=== PATIENT | female | born 1945 | race Caucasian/White ===

== ENCOUNTER → 2016-07-02 | Outpatient (CLI) | payer OTHER ==
[~2016-07-02] VITALS: Ht 157.5 cm; Wt 81.8 kg
[~2016-07-02] MED LIST: IBUPROFEN 200200 M1 PO; MOBIC15 MG PO; TRAZODONE HCL50 MG PO
--- NOTE | ~2016-07-02 | HPC ---
[facility] [place] [address] PAIN MANAGEMENT CONSULTATION Name: SHARMIN REEVES Room #: REG GEOFF Douglas.#: [id number] Admission: 07/02/16 Attend Phys: Dave Negron MD Discharge: Date of : 45 Report #: [id number] THIS REPORT FOR: //name// CC: Dave Miller MD DATE OF SERVICE: 07/02/2016 CHIEF COMPLAINT: Pain in the hip going down into the left side of the leg and into the calf. HISTORY OF PRESENT ILLNESS: The patient is a 70-year-old female who has been referred to the pain clinic for evaluation. The patient has been experiencing pain and discomfort involving her back with pain radiating down into her hip, left leg and down into the avery. She notes that the pain is worse with activity. It improves somewhat with inactivity. She finds that use of her ibuprofen medication can be helpful, but it wears off. She denies any surgery on her back. She does have some pain and discomfort in her left arm. She underwent a flu shot and noticed some myalgias after the injection. She continues to have some soreness in the area where the injection was performed. There is no evidence of infection or any outward problem, but she does still have some soreness in this area. She has had problems with her right rotator cuff and things are going reasonably well in that area at this juncture. ALLERGIES: No known drug allergies. MEDICATIONS: Advil 100 mg as needed b.i.d. The patient states that she has not had any GI problems. Multiple vitamins. PAST MEDICAL HISTORY: Osteoarthritis, left ankle tendinitis [address] Valdov[address]. PAST SURGICAL HISTORY: Right rotator cuff repair 2011, wisdom teeth excision. SOCIAL HISTORY: Father , mother at 90 years of age, skin cancer, spouse disease 74 years esophageal cancer, 1 daughter age 44, son age 46, one half brother at the mother side at age 63. SOCIAL HISTORY: Never smoked cigarettes, social use of alcohol on occasion. 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 Moved to [place] in 2014. REVIEW OF SYSTEMS: Fourteen-point review of systems indicates generally good health, fatigue, weakness, wears glasses, insomnia, otherwise unremarkable. [facility] [address] [place] [address] PAIN MANAGEMENT CONSULTATION Name: SHARMIN REEVES Room #: REG CLHarjeet ColeAttila#: [id number] Admission: 07/02/16 Attend Phys: Dave Negron MD Discharge: Date of : 45 Report #: [id number] LABORATORY DATA: No laboratory is available at the time of our interview. PHYSICAL EXAMINATION: Height 157 cm, weight 81 kilograms. BMI is 33. Blood pressure 127/68, pulse 91, respiratory rate 16, room air saturation is 97%. The patient has pain and discomfort in her hip and notes radiation of it down to the left leg and side and traveling down to the anterior calves at times. Walks with an antalgic gait and has pain as a result of ankle problems. IMPRESSION: Lumbar radiculopathy. The patient has tried a conservative approach and used a Medrol Dosepak. She has undergone physical therapy and continues with Physical Therapy in an effort to improve her gait. She has pain and discomfort in the left ankle with tendon problems. Hypercholesterolemia, left arm pain status post flu shot. RECOMMENDATIONS: We discussed treatment options with the patient. Risks and benefits of an epidural steroid injection were discussed. Possible complications were reviewed. The patient has pain and discomfort in the L4-L5 distribution. I think an epidural steroid injection would be beneficial at this juncture. The patient elects to follow up in the near future. She has an appointment scheduled this weekend. She is going to drive to another town. She will follow up in the future at which time, she will undergo an epidural steroid injection with the thoughts of improving her pain and discomfort and lumbar radicular pain. By: [id number] Dave Negron MD /agustín
== END ==
LOC: PAIN 06:56 → EDBD 08:39
DX: M54.16 Radiculopathy, lumbar region (principal); M79.662 Pain in left lower leg; E78.00 Pure hypercholesterolemia, unspecified

== ENCOUNTER → 2016-07-05 | Outpatient (CLI) | payer OTHER ==
[~2016-07-05] VITALS: Ht 157.5 cm; Wt 82.1 kg
--- NOTE | ~2016-07-05 | HPC ---
[facility] [place] [address] PAIN MANAGEMENT CONSULTATION Name: SHARMIN REEVES Room #: REG Harjeet Douglas.#: [id number] Admission: 07/05/16 Attend Phys: Dave Negron MD Discharge: Date of : 45 Report #: [id number] THIS REPORT FOR: //name// CC: Dave Miller MD DATE OF SERVICE: 07/05/2016 PRIMARY CARE PHYSICIAN: Girma Miller M.D. FOLLOWUP COMPLAINT: " My pain has just about all gone with use of the Mobic". FOLLOWUP HISTORY: The patient is a 70-year-old female who has been seen in the pain clinic because of pain and discomfort involving her lower back with some radicular pain. She has undergone physical therapy. She continues with physical therapy. She has been given a prescription for meloxicam. She took this medication and on the same day noted significant improvement in her pain. When she woke up the next day, she felt very well. She has had no complications from it. She has had no GI complaints. She had been using Advil and has stopped that medication. She is quite happy with a results and does not feel that additional treatment at this time is needed. She would like to continue with the Advil on a p.r.n./regular basis as needed. She is able to engage in activities of daily living she has not been able to in quite some time. PHYSICAL EXAMINATION: GENERAL: The patient is alert. ABDOMEN: No evidence of GI problems or complaint. MUSCULOSKELETAL: She rates her pain as a 1 to 2. She does have some left hip, thigh, calf and ankle pain, but these are all quite improved. IMPRESSION: Lumbar radicular pain down into her calf, which has improved with the use of Mobic 15 mg 1 p.o. every day. She will continue with this medication. She will mind her GI symptoms. If she notes any problems with it causing GI upset, she will stop taking the medication at least for a while. She will call us if she has any problem with her medication. She may follow up with Dr. Girma Miller if she chooses and he could continue writing the medication for her. She states that she is scheduled to have an appointment in about 2-3 months. We would like to thank you for letting us participate in her care. We hope she continues to improve. By: [id number] [id number] Dave Negron MD /agustín
== END | disposition home or self-care (01) ==
LOC: PAIN 06:12
DX: M54.16 Radiculopathy, lumbar region (principal)

== ENCOUNTER → 2016-10-15 | Outpatient (CLI) | payer OTHER ==
[~2016-10-15] VITALS: Ht 157.5 cm; Wt 79.6 kg
[~2016-10-15] MED LIST changes: +MEDROLDOSEPACK PO
[2016-10-15 11:22] VITALS: BP 108/67
== END | disposition home or self-care (01) ==
LOC: PAIN 06:52
DX: M25.562 Pain in left knee (principal); M25.462 Effusion, left knee; M54.16 Radiculopathy, lumbar region

== ENCOUNTER → 2016-10-26 | Outpatient (CLI) | payer OTHER | LOC: RAD 13:17 | DX: Z12.31 Encounter for screening mammogram for malignant neoplasm of breast (principal) ==

== ENCOUNTER → 2017-05-13 | Outpatient (CLI) | payer OTHER ==
[~2017-05-13] VITALS: Ht 157.5 cm; Wt 82.3 kg
--- NOTE | ~2017-05-13 | HPC ---
[facility] [place] [address] PAIN MANAGEMENT CONSULTATION Name: SHARMIN REEVES Room #: REG GEOFF Douglas.#: [id number] Admission: 05/13/17 Attend Phys: Dave Negron MD Discharge: Date of : 45 Report #: [id number] THIS REPORT FOR: //name// CC: Dave Miller MD DATE OF SERVICE: 05/13/2017 FOLLOWUP COMPLAINT: Here for renewal of my medication. It has been working really well. FOLLOWUP HISTORY: The patient is a 71-year-old female who has been seen in the pain clinic in the past because of lumbar radiculopathy with pain, which radiated down into her calf. She was started on Mobic in September 2016. She finds that the medication has been quite efficacious. At this juncture, she has run out of the medication and has returned for followup. As you recall, she has some problem with pain and discomfort in the lumbar area as well as in her knee. She has been reasonably active. She has had no complications from using Mobic. She denies any gastrointestinal problems. Denies any excessive bleeding or any other untoward problems. Denies any bowel or bladder dysfunction. Overall, things have been going reasonably well. She rates her pain as 1 today with use of her current medical regimen. She still has some pain and discomfort in her left ankle. Activities such as standing and walking can exacerbate her discomfort. Overall, things are going reasonably well. ALLERGIES: No known drug allergies. CURRENT MEDICATIONS: Which have been reviewed are meloxicam 15 mg 1 p.o. daily, Desyrel 50 mg at bedtime. PHYSICAL EXAMINATION: GENERAL: The patient is a well-developed, well-nourished white female. No trauma history. Appearance, the patient appears her stated age. Orientation, she is oriented x 3. Affect is appropriate. HEENT: Unremarkable. Head is atraumatic. Ears, normal hearing. Eyes, nonicteric with accommodation. Nasal, no problems. Moist buccal membranes. NECK: Without adenopathy. LUNGS: Clear to auscultation. HEART: Regular rate. MUSCULOSKELETAL: Appears normal alignment. No obvious scoliosis, kyphosis, or lordosis. The patient's gait appears appropriate. No significant antalgic gait noted. NEUROLOGIC: Sensation normal within the upper extremities and lower extremities at this juncture. Muscle strength is judged to be +5 in the upper extremities and +5 in the lower extremities. She is able to move easily from the chair to [facility] [address] [place] [address] PAIN MANAGEMENT CONSULTATION Name: SHARMIN REEVES Room #: REG [facility]#: [id number] Admission: 05/13/17 Attend Phys: Dave Negron MD Discharge: Date of : 45 Report #: [id number] walking position. PAIN CLINIC ASSESSMENT: 1. History of osteoarthritis involving the neck, feet, and hands. 2. History of rheumatoid arthritis, not applicable. Height 5 feet 2 inches tall, weight 181 pounds, BMI is 33.2. 3. Vital signs: Blood pressure 106/65, pulse 83, respiratory rate 16, room air saturation is 97%. 4. Pain intensity is judged to be 1. 5. Fall risks. The patient is not having dizziness nor does she needs help standing and walking. She has not fallen in the last 3 months. 6. The patient is not on a blood thinner. 7. The patient is not treated for hypertension. 8. Opioid therapy risk greater than 6 weeks, the patient is not on opioids. 9. Risk assessment tool, low at 0/3, functional assessment tool 58/70 regarding activities, mood, walking, work relationships, sleep, and enjoyment of life. 10. The patient has never used drugs, has never smoked tobacco, does not smoke at this juncture does, not use alcoholic beverages. IMPRESSION: 1. History of lumbar radicular pain with pain, which has radiated down into her calf. This has improved with Mobic. 2. Past history of swelling in the knees with some locking and catching. RECOMMENDATIONS: We discussed treatment options with the patient. She has been doing quite well over the last year with her current medical regimen of Mobic. She is able to engage in activities she would like to. She has not had any problems with her GI. We have explained the use of nonsteroidal anti-inflammatory medications in a meterman and short term duration. We have explained that use of nonsteroidals for as shorter period of time as possible can be efficacious. The patient at this juncture feels that this medication makes her pain much more controlled and she would like to continue with that at this juncture. She is not on any opioid medications. At this juncture, since she is doing so well, we would recommend that she return to her physician, Dr. Girma Miller. He can continue to provide this medication for her on a regular basis. If she should note a worsening of her pain and discomfort, she can return to the pain clinic for further evaluation. We would like to thank you for letting us participate in her care. We hope she continues to improve. <ELECTRONICALLY SIGNED> By: Dave Negron MD 05/25/17 1007 [id number] [id number] Dave Negron MD /ALMA DELIA
[2017-05-13 11:15] VITALS: BP 106/65
== END ==
LOC: PAIN 07:00
DX: M54.16 Radiculopathy, lumbar region (principal); M25.462 Effusion, left knee; M25.461 Effusion, right knee

== ENCOUNTER → 2018-12-20 | Outpatient (CLI) | payer OTHER | LOC: RAD 13:06 | DX: Z12.31 Encounter for screening mammogram for malignant neoplasm of breast (principal) ==

== ENCOUNTER → 2018-12-29 | Outpatient (CLI) | payer OTHER | LOC: ULTRA 01:12 | DX: N63.20 Unspecified lump in the left breast, unspecified quadrant (principal) ==

== ENCOUNTER → 2019-06-29 | Outpatient (CLI) | payer OTHER | LOC: BC 11:03 | DX: N63.20 Unspecified lump in the left breast, unspecified quadrant (principal); R92.8 Other abnormal and inconclusive findings on diagnostic imaging of breast ==

== ENCOUNTER → 2020-03-21 | Outpatient (CLI) | payer OTHER | LOC: RAD 10:56 | PROVIDERS: ATTEND Nurse Practitioner | DX: M25.762 Osteophyte, left knee (principal); M25.862 Other specified joint disorders, left knee ==

== ENCOUNTER → 2021-01-30 | Outpatient (CLI) | payer OTHER | LOC: BC 13:06 | PROVIDERS: ATTEND Family Medicine | DX: Z12.31 Encounter for screening mammogram for malignant neoplasm of breast (principal) ==